=== PATIENT | female | born 1945 | race Caucasian/White ===

== ENCOUNTER 2018-08-19 15:46 | Emergency (ER) | payer MEDICARE, BC ==
--- NOTE | 2018-08-19 16:30 | CT ---
CT HEAD NONCONTRAST DATE: 08/19/18 HISTORY: Fall. Head injury. COMPARISON: 01/13/17. FINDINGS: There is no evidence of acute intracranial hemorrhage or infarct. The oval 1.1 cm hyperdense lesion a t the right suprasellar level is stable and consistent with a meningioma described on MRI from 2016. No new masses. Mild chronic ischemic small vessel disease throughout the periventricular white matter . Large area of subcutaneous and scalp injury over the left frontal calvarium. Visualized paranasal s inuses remain well aerated. IMPRESSION: 1. Large contusion left frontal scalp. 2. No acute intracranial abnormalities are demonstrated. 3. Right suprasellar meningioma appears stable. POS: [facility]
--- NOTE | 2018-08-19 16:32 | CT ---
CT CERVICAL SPINE NONCONTRAST: Date: 08/19/18 HISTORY: Fall. Neck injury. FINDINGS: Vertebral body height and alignment are maintained. Straightening of the normal lordotic curvature. C ervicothoracic junction is intact. No acute fracture or dislocation. Osteophytosis throughout the fac ets. Minimal degenerative spondylolisthesis at the C3-4 level. IMPRESSION: Degenerative changes of cervical spine. No acute osseous abnormalities are demonstrated. POS: [facility]
--- NOTE | 2018-08-19 16:33 | CT ---
CT FACIAL BONES NONCONTRAST: Date: 08/19/18 HISTORY: Fall. Facial injury. FINDINGS: The globes, mandible, and zygomatic arches are intact. Visualized paranasal sinuses remain well aerat ed. No acute fracture or dislocation are apparent. Left frontal scalp swelling is incompletely imaged on this exam. IMPRESSION: No acute osseous abnormalities are demonstrated. POS: [facility]
[2018-08-19 16:56] LABS: #Basophils 0.1 thou/uL (0.0-0.2); #Eosinphils 0.2 thou/uL (0.0-0.7); #Lymphocytes 2.7 thou/uL (1.20-3.40); %Eosinophils 2.2 % (0.0-10.0); %Lymphocytes 24.1 % (21.0-51.0); %Monocytes 9.4 % (0.0-10.0); %Neutrophils 63.3 % (42.0-75.0); Hemoglobin 11.7 g/dL (12.0-16.0); Mean Platelet Volume 5.5 fL (7.4-10.4); Platelet Count 306 thou/uL (130-400); RBC Distribution Width 14.1 % (11.5-14.5); Red Blood Cell (RBC) Count 4.34 mill/uL (4.20-5.40); White Blood Cell (WBC) Count 11.1 thou/uL (4.8-10.8)
[2018-08-19 16:57] LABS: INR-International Normal Ratio 0.9; Prothrombin Time 12.5 SEC (12.0-14.7)
[2018-08-19 17:10] LABS: ALT (SGPT) 22 U/L (8-55); AST (SGOT) 21 U/L (5-34); Albumin 4.2 g/dL (3.4-4.8); Alkaline Phosphatase 112 U/L (40-150); Anion Gap 15 mmol/L (10-20); BUN (Urea Nitrogen) 18 mg/dL (9.8-20.1); Bilirubin, Total 0.4 mg/dL (0.2-1.2); Calc. Creatinine Clearance 0 mL/min (70-130); Calcium 9.7 mg/dL (7.8-10.44); Carbon Dioxide 25 mmol/L (23-31); Chloride 103 mmol/L (98-107); Estimated GFR-MDRD 57; Globulin 3.3 g/dL (2.4-3.5); Glucose 149 mg/dL (83-110); Potassium 4.3 mmol/L (3.5-5.1); Protein, Total 7.5 g/dL (6.0-8.3); Sodium 139 mmol/L (136-145)
[2018-08-19] MEDS ORDERED: Acetaminophen 500 MG TAB ONE (18:09)
== END 2018-08-19 19:24 | disposition home or self-care (01) ==
LOC: MADERS 15:46
DX: S01.21XA Laceration without foreign body of nose, initial encounter (principal); F32.9 Major depressive disorder, single episode, unspecified; E11.9 Type 2 diabetes mellitus without complications; Z86.73 Personal history of transient ischemic attack (TIA), and cerebral infarction without residual deficits; W01.0XXA Fall on same level from slipping, tripping and stumbling without subsequent striking against object, initial encounter
CPT/HCPCS: 36415; 70450; 70486; 72125; 80053; 85025; 85610